=== PATIENT | female | born 1985 | race Two or more races ===

== ENCOUNTER 2023-12-13 13:44 | Emergency (ER) | payer OTHER ==
[~2023-12-13] VITALS: Ht 152.4 cm; Wt 64.0 kg
[2023-12-13 13:53] VITALS: BP 167/95; PULSE 74; RESP 18; TEMP 98.3; O2SAT 100
[2023-12-13] MEDS ORDERED: LIDO700A15 TP (15:55)
[2023-12-13] MEDS ORDERED: NAPR-1176 MT (15:55)
== END 2023-12-13 16:28 | disposition home or self-care (01) ==
LOC: ER 13:44
DX: M54.42 Lumbago with sciatica, left side (principal)
CPT/HCPCS: 81025; 99282; 99283